=== PATIENT | female | born 1985 | race Caucasian/White ===

== ENCOUNTER → 2024-07-03 10:21 | Outpatient (CLI) | payer OTHER, SELFPAY ==
--- NOTE | 2024-07-03 10:24 | DI.RAD.S_ITS ---
PROCEDURE: XR FINGER LT MIN 2V INDICATIONS: Finger injury/laceration TECHNIQUE: AP hand, 2 views of the 3rd finger(s) acquired. COMPARISON: None. FINDINGS: Bones: No fractures or dislocations. No suspicious bony lesions. Soft tissues: No suspicious soft tissue calcifications. 3rd digit soft tissue laceration. IMPRESSION: No visualized acute fracture or dislocation. However, if clinical concern and/or pain persist, short interval imaging followup in 7-10 days is recommended, as occult injury cannot be definitively excluded. Dictated by: Taylor Cerrato M.D. on 07/03/2024 at 11:24 Approved by: Taylor Cerrato M.D. on 07/03/2024 at 11:25
== END ==
PROVIDERS: PCP Family Medicine; Referring Provider Physician Assistant Surgical; Visit Provider Physician Assistant Surgical
DX: S61.213A Laceration without foreign body of left middle finger without damage to nail, initial encounter (principal); S69.90XA Unspecified injury of unspecified wrist, hand and finger(s), initial encounter; X58.XXXA Exposure to other specified factors, initial encounter
CPT/HCPCS: 73140